=== PATIENT | male | born 1960 | race Caucasian/White ===

== ENCOUNTER 2022-10-27 06:52 | Day surgery (SDC) | payer BC ==
[2022-10-27] MEDS: Lactated Ringers 1,000 ML IV SCH (07:17)
[2022-10-27] MEDS ORDERED: fentaNYL 100 MCG/2 ML SDV ONE (07:43)
[2022-10-27] MEDS ORDERED: Propofol 200 MG/20 ML SDV ONE (07:43)
== END 2022-10-27 13:00 | disposition home or self-care (01) ==
LOC: VM.SDS 06:52
PROVIDERS: ATTEND Student in an Organized Health Care Education/Training Program
DX: D12.3 Benign neoplasm of transverse colon (principal); D12.5 Benign neoplasm of sigmoid colon; E78.00 Pure hypercholesterolemia, unspecified; R73.9 Hyperglycemia, unspecified; F41.9 Anxiety disorder, unspecified; F32.A Depression, unspecified; F17.210 Nicotine dependence, cigarettes, uncomplicated; L28.0 Lichen simplex chronicus; Z98.890 Other specified postprocedural states; Z79.899 Other long term (current) drug therapy
CPT/HCPCS: 00812; 45385; J2704; J3010; J7120